=== PATIENT | male | born 1990 | race African-American/Black ===

== ENCOUNTER 2017-10-14 14:38 | Observation (INO) ==
[2017-10-14] MEDS ORDERED: 0.9 % SODIUM CHLORIDE 1,000 ML IV ONE ×2 (14:56→17:10)
[2017-10-14] MEDS ORDERED: INSULIN REGULAR, HUMAN 1 UNIT/0.01 ML UNIT IV ONE (15:04)
--- NOTE | 2017-10-14 15:11 | Emergency Department Note ---
General Adult HPI - General Chief complaint: Blood Sugar Problem Stated complaint: Excessive thirst, urination Time Seen by Provider: 10/14/17 14:47 Source: patient Mode of arrival: ambulatory Limitations: no limitations - Related Data Home Medications Medication Instructions Recorded Confirmed No Known Home Meds [No Known Home 10/14/17 10/14/17 Meds] Allergies Allergy/AdvReac Type Severity Reaction Status Date / Time lactose Allergy Mild Diarrhea Verified 10/14/17 19:02 Past Medical History - Social History smoking status: Never smoker Physical Exam Limitations: no limitations Course Vital Signs Temperature 98.1 F 10/14/17 14:41 Pulse Rate 83 10/14/17 14:41 Respiratory Rate 18 10/14/17 14:41 Blood Pressure 160/104 10/14/17 14:41 Pulse Oximetry (%) 99 10/14/17 14:41 Temperature 97.4 F 10/15/17 07:37 Pulse Rate 73 10/15/17 07:37 Respiratory Rate 16 10/15/17 07:37 Blood Pressure 157/79 10/15/17 07:37 Pulse Oximetry (%) 97 10/15/17 07:37 Medical Decision Making - MDM Narrative Medical decision making narrative: pt seen by nurse practioner Lexis and pt examined in conjunctrion with. agree with dx and rx of new onset diabetes and admission to Dr Lucero - Lab Data Result diagrams: 10/14/17 15:00 10/15/17 05:38 Lab Results 10/14/17 10/14/17 10/14/17 Range/Units 15:00 15:00 15:00 WBC 9.3 (4.5-11.0) K/mcL RBC 5.12 (4.50-5.90) M/mcL Hgb 15.4 (13.5-16.5) g/dL Hct 45.6 (41.0-55.0) % POC Hct 46.0 (41.0-55.0) % MCV 89.1 (80.0-100.0) fL MCH 30.1 (26.0-34.0) pg MCHC 33.8 (31.0-36.0) g/dL RDW 12.4 (11.5-14.5) % Plt Count 244 (140-440) K/mcL MPV 10.1 (7.4-10.4) fL Gran % 64.0 (38.0-78.0) % Lymph % (Auto) 26.7 (15.5-49.0) % [place] % (Auto) 6.9 (1.0-12.0) % Eos % (Auto) 2.1 (0.0-7.0) % Baso % (Auto) 0.3 (0.0-2.0) % Gran # 5.9 (1.8-8.0) K/mcL Lymph # (Auto) 2.5 (1.5-4.8) K/mcL [place] # (Auto) 0.6 (0.1-0.9) K/mcL Eos # (Auto) 0.2 (0.0-0.7) K/mcL Baso # (Auto) 0 (0.0-0.3) K/mcL VBG Lactic Acid 1.1 (0.5-2.2) mmol/L POC Sodium 130 L (133-145) mmol/L Sodium 128 L (133-145) mmol/L POC Potassium 4.2 (3.3-5.1) mmol/L Potassium 4.2 (3.3-5.1) mmol/L POC Chloride 93 L (96-108) mmol/L Chloride 88 L (96-108) mmol/L Carbon Dioxide 23 (22-30) mmol/L POC Total CO2 25 (22-30) mmol/L Anion Gap 17.0 H (8-16) POC BUN 15 (6-20) mg/dl BUN 14 (6-20) mg/dl Creatinine 1.0 (0.7-1.2) mg/dl POC Creatinine 0.8 (0.7-1.2) mg/dl GFR Calculation 104 Glucose 692 H* (70-105) mg/dL POC Glucose 647 H* (70-105) mg/dL Calcium 10.2 (8.6-10.4) mg/dl POC WB Ioniz Calcium 1.25 (1.16-1.32) mmol/L Total Bilirubin 0.6 (0.0-1.0) mg/dL AST 53 H (0-37) U/l ALT 97 H (0-40) U/l Alkaline Phosphatase 132 H (39-117) U/L Total Protein 7.7 (5.9-8.4) gm/dL Albumin 4.8 (3.2-5.2) gm/dL Globulin 2.9 (2.2-3.7) gm/dL Albumin/Globulin Ratio 1.7 (1.0-2.3) Disposition Pt seen by [employer]ICE MANAGER/PA only: No Clinical Impression: Acute hyperglycemia Disposition: Xfer As Inpt ([facility]) Condition: Fair
[2017-10-14] MEDS ORDERED: INSULIN LISPRO 1 UNIT/0.01 ML UNIT SQ ONE ×2 (15:14→15:37)
[2017-10-14 15:44] LABS: Basophils # (Auto) 0 K/mcL (0.0-0.3); Basophils % (Auto) 0.3 % (0.0-2.0); Eosinophils # (Auto) 0.2 K/mcL (0.0-0.7); Eosinophils % (Auto) 2.1 % (0.0-7.0); Lymphocytes # (Auto) 2.5 K/mcL (1.5-4.8); Lymphocytes % (Auto) 26.7 % (15.5-49.0); Mean Cell Volume 89.1 fL (80.0-100.0); Mean Corpuscular HGB Conc 33.8 g/dL (31.0-36.0); Mean Corpuscular Hemoglobin 30.1 pg (26.0-34.0); Monocytes # (Auto) 0.6 K/mcL (0.1-0.9); Monocytes % (Auto) 6.9 % (1.0-12.0); Platelet Count 244 K/mcL (140-440); RBC 5.12 M/mcL (4.50-5.90); Red Cell Distribution Width 12.4 % (11.5-14.5)
[2017-10-14 16:05] LABS: ALT/SGPT 97 U/l (0-40); Albumin 4.8 gm/dL (3.2-5.2); Albumin/Globulin Ratio 1.7 (1.0-2.3); Alkaline Phosphatase 132 U/L (39-117); Blood Urea Nitrogen 14 mg/dl (6-20)
[2017-10-14] MEDS ORDERED: 0.9 % SODIUM CHLORIDE 1,000 ML IV SCH ×2 (17:15→18:40)
--- NOTE | 2017-10-14 17:22 | Emergency Department Note ---
General Adult HPI - General Chief complaint: Blood Sugar Problem Stated complaint: Excessive thirst, urination Time Seen by Provider: 10/14/17 14:47 Source: patient Mode of arrival: ambulatory Limitations: no limitations - History of Present Illness HPI Narrative: 27-year-old male presents with what he believes could be high blood sugar. He has had a month long history of excessive thirst, weight loss of 30 pounds, frequent urination to the point where the last 2 nights he has been incontinent at night because he cannot make it to the bathroom he is voiding so much. He feels hot and dry. He has no history of diabetes and has never had anything like this in the past. Denies any family history of diabetes. No fever or chills. No nausea, vomiting, or diarrhea. He does have some general malaise. Denies any other health history Associated symptoms: Reports: malaise. Denies: chest pain, cough, diaphoresis, fever/chills, headaches, rash, shortness of breath, syncope - Related Data Home Medications Medication Instructions Recorded Confirmed No Known Home Meds [No Known Home 10/14/17 10/14/17 Meds] Allergies Allergy/AdvReac Type Severity Reaction Status Date / Time No Known Drug Allergies Allergy Unverified 10/14/17 14:43 Review of Systems All systems ED: reviewed and negative except as stated. Past Medical History - Past Medical History Medical history: Reports: no medical history Surgical history ED: Reports: no surgical history - Social History smoking status: Never smoker Alcohol use: Reports: None Drug use: Reports: none Physical Exam Limitations: no limitations General appearance: alert, in no apparent distress Head: atraumatic, normocephalic, normal inspection Eye: Present: normal appearance. Absent: conjunctival injection ENT: normal exam, normal oropharynx, mucous membranes moist, TM's normal bilaterally, normal external ear exam Neck: Present: normal inspection, trachea midline. Absent: tenderness, lymphadenopathy Chest: Present: normal inspection, symmetric chest wall rise Respiratory: Present: normal lung sounds bilaterally. Absent: respiratory distress, wheezes, accessory muscle use Cardiovascular: Present: regular rate, normal heart sounds Abdominal: Present: soft, normal bowel sounds. Absent: distention, tenderness, guarding Extremities: Present: normal inspection Neurological: Present: alert, oriented X3, normal gait Psychiatric: Present: normal affect, normal mood Skin: Present: warm, dry, intact, normal color. Absent: rash, cyanosis, diaphoresis, erythema Course Course Narrative: At 1730 I did discuss this patient with Dr. Lucero, the hospitalist who agrees to accept and admit the patient. He will need a considerable amount of education due to new onset diabetes. Vital Signs Temperature 98.1 F 10/14/17 14:41 Pulse Rate 83 10/14/17 14:41 Respiratory Rate 18 10/14/17 14:41 Blood Pressure 160/104 10/14/17 14:41 Pulse Oximetry (%) 99 10/14/17 14:41 Temperature 98.1 F 10/14/17 14:41 Pulse Rate 76 10/14/17 16:31 Respiratory Rate 18 10/14/17 14:41 Blood Pressure 153/89 10/14/17 16:31 Pulse Oximetry (%) 98 10/14/17 16:31 Medical Decision Making - Lab Data Lab results reviewed: Yes I reviewed the patient's lab results. Result diagrams: 10/14/17 15:00 10/14/17 15:00 Lab Results 10/14/17 10/14/17 10/14/17 Range/Units 15:00 15:00 15:00 WBC 9.3 (4.5-11.0) K/mcL RBC 5.12 (4.50-5.90) M/mcL Hgb 15.4 (13.5-16.5) g/dL Hct 45.6 (41.0-55.0) % POC Hct 46.0 (41.0-55.0) % MCV 89.1 (80.0-100.0) fL MCH 30.1 (26.0-34.0) pg MCHC 33.8 (31.0-36.0) g/dL RDW 12.4 (11.5-14.5) % Plt Count 244 (140-440) K/mcL MPV 10.1 (7.4-10.4) fL Gran % 64.0 (38.0-78.0) % Lymph % (Auto) 26.7 (15.5-49.0) % [place] % (Auto) 6.9 (1.0-12.0) % Eos % (Auto) 2.1 (0.0-7.0) % Baso % (Auto) 0.3 (0.0-2.0) % Gran # 5.9 (1.8-8.0) K/mcL Lymph # (Auto) 2.5 (1.5-4.8) K/mcL [place] # (Auto) 0.6 (0.1-0.9) K/mcL Eos # (Auto) 0.2 (0.0-0.7) K/mcL Baso # (Auto) 0 (0.0-0.3) K/mcL VBG Lactic Acid 1.1 (0.5-2.2) mmol/L POC Sodium 130 L (133-145) mmol/L Sodium 128 L (133-145) mmol/L POC Potassium 4.2 (3.3-5.1) mmol/L Potassium 4.2 (3.3-5.1) mmol/L POC Chloride 93 L (96-108) mmol/L Chloride 88 L (96-108) mmol/L Carbon Dioxide 23 (22-30) mmol/L POC Total CO2 25 (22-30) mmol/L Anion Gap 17.0 H (8-16) POC BUN 15 (6-20) mg/dl BUN 14 (6-20) mg/dl Creatinine 1.0 (0.7-1.2) mg/dl POC Creatinine 0.8 (0.7-1.2) mg/dl GFR Calculation 104 Glucose 692 H* (70-105) mg/dL POC Glucose 647 H* (70-105) mg/dL Calcium 10.2 (8.6-10.4) mg/dl POC WB Ioniz Calcium 1.25 (1.16-1.32) mmol/L Total Bilirubin 0.6 (0.0-1.0) mg/dL AST 53 H (0-37) U/l ALT 97 H (0-40) U/l Alkaline Phosphatase 132 H (39-117) U/L Total Protein 7.7 (5.9-8.4) gm/dL Albumin 4.8 (3.2-5.2) gm/dL Globulin 2.9 (2.2-3.7) gm/dL Albumin/Globulin Ratio 1.7 (1.0-2.3) Disposition Pt seen by GUNNER'S MATE G/PA only: Yes Clinical Impression: Acute hyperglycemia Disposition: Home, Self-Care Condition: Fair Time of Disposition: 17:30
--- NOTE | 2017-10-14 17:26 | Emergency Department Note ---
ED Note Addendum Note Addendum: he has been evaluated and laboratory tests reviewed with the nurse practitioner patient has new onset diabetes and agree with their admission to Dr. Lucero service for further treatment and education.
[2017-10-14] MEDS ORDERED: DEXTROSE 50% 50 ML VIAL IV PRN (18:40)
[2017-10-14] MEDS ORDERED: DEXTROSE 31 GM ORAL.SUSP PO PRN (18:40)
[2017-10-14] MEDS ORDERED: ONDANSETRON 4 MG/2 ML VIAL IV PRN (18:40)
[2017-10-14] MEDS ORDERED: ACETAMINOPHEN 325 MG TABLET PO PRN (18:40)
[2017-10-14] MEDS ORDERED: POTASSIUM CHLORIDE 20 MEQ PACKET PO PRN (18:40)
[2017-10-14] MEDS ORDERED: MAGNESIUM SULFATE 2 GM/50 ML BAG IV PRN (18:40)
--- NOTE | 2017-10-14 19:29 | Internal Med History&Physical ---
Medical - H&P: [facility] Patient information: Note initiated : 10/14/17 at 7:22 pm Service Date, if different from initiated Date: [] Patient: Delfino Rodriguez a 27 y/o M admitted on 10/14/17 for Excessive thirst, urination. 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 Symptoms associated with increasing urination, increased thirst and hunger. Initial workup in the ER was significant for blood sugars over 600 along with elevated blood pressure 150s. Patient received 14 units of regular insulin along with 2 L crystalloid bolus. Hospitalist service was consulted in light of new onset diabetes and need for furtherevaluation. Patient has not been aware of high blood sugars in the past. There is no significant family history. biochemical profile was unremarkable without signs of ketoacidosis. At the time of evaluation patient is accompanied with family. He denies lightheadedness dizziness. He endorses to leg cramps. His above symptoms have been progressing over the last 1 month.he denies high-risk sexual behavior or IV drug use. Denies excessive alcoholism. review of systems 10 point review of system was performed and is negative except for ones discussed above Medical - H&P: PMH Medical history: nonsignificant Pertinent family history: no history of diabetes Social history: nonsmoker No history of alcoholism No IV drug use works as security personnel Functional capacity: independent ambulation Medical - H&P: Meds Home Medications Medication Instructions Recorded Confirmed Type No Known Home Meds [No Known Home 10/14/17 10/14/17 History Meds] Allergies Allergy/AdvReac Type Severity Reaction Status Date / Time lactose Allergy Mild Diarrhea Verified 10/14/17 19:02 Medical - H&P: Exam - Constitutional Vitals: Temp Pulse Resp BP Pulse Ox 98.1 F 84 18 148/83 98 10/14/17 14:41 10/14/17 18:01 10/14/17 14:41 10/14/17 18:01 10/14/17 18:01 Exam: Oral cavity dry No eardischarge nonlabored breathing No lymphedema Nondistended abdomen Alert oriented no anxiety Moving all 4 extremities IV movements symmetric Skin no suspicious lesion Medical - H&P: Reslt - Labs CBC & Chem 7: 10/14/17 15:00 10/14/17 15:00 Labs: Short CBC 10/14/17 Range/Units 15:00 WBC 9.3 (4.5-11.0) K/mcL Hgb 15.4 (13.5-16.5) g/dL Hct 45.6 (41.0-55.0) % Plt Count 244 (140-440) K/mcL BMP 10/14/17 15:00 Sodium 128 L Potassium 4.2 Chloride 88 L Carbon Dioxide 23 BUN 14 Creatinine 1.0 Glucose 692 H* Calcium 10.2 Liver Function 10/14/17 Range/Units 15:00 Total Bilirubin 0.6 (0.0-1.0) mg/dL AST 53 H (0-37) U/l ALT 97 H (0-40) U/l Alkaline Phosphatase 132 H (39-117) U/L Albumin 4.8 (3.2-5.2) gm/dL Medical - H&P: A/P (1) Diabetes mellitus, new onset Current visit: Yes Status: Acute * new onset diabetes- start insulinsliding scale. Send anti-VIOLA, C-peptide, insulin levels. Start metformin/glipizide. diabetic education/diabetic diet * Hypertension-continue monitoring. If persistent elevation consider WILLIE inhibitor * Full code plan * observation admission * New-onset diabetes evaluation as above * Metformin and glipizide/sliding-scale * scheduled outpatient primary care physician follow-up on discharge Medical - H&P: Qual - Stroke Symptom Onset Unknown: No - VTE Deep Vein Thrombosis/Pulmonary Embolism Present on Admission: No
[2017-10-14] MEDS: HEPARIN 5,000 UNIT/ML VIAL SQ SCH (20:51)
[2017-10-14] MEDS: 0.9 % SODIUM CHLORIDE 1,000 ML IV SCH (20:52)
[2017-10-14] MEDS: DOCUSATE SODIUM 100 MG CAPSULE PO SCH (21:09)
[2017-10-14] MEDS: INSULIN LISPRO 1 UNIT/0.01 ML UNIT SQ SCH (21:10)
[2017-10-14] MEDS: 0.9 % SODIUM CHLORIDE 10 ML SYRINGE IV SCH (21:11)
[2017-10-14] MEDS: NEUTRA PHOS 1 PACKET PO SCH ×2 (21:11→23:54)
[2017-10-14] MEDS: CYANOCOBALAMIN (VITAMIN B-12) 500 MCG TABLET PO SCH ×2 (21:11→23:54)
[2017-10-14] MEDS: SENNOSIDES/DOCUSATE SODIUM 1 TAB TABLET PO SCH (21:11)
[2017-10-15] MEDS: 0.9 % SODIUM CHLORIDE 1,000 ML IV SCH ×3 (05:19→16:53)
[2017-10-15] MEDS: 0.9 % SODIUM CHLORIDE 10 ML SYRINGE IV SCH ×3 (05:19→20:28)
[2017-10-15 07:21] LABS: ALT/SGPT 78 U/l (0-40); Albumin 3.8 gm/dL (3.2-5.2); Albumin/Globulin Ratio 1.6 (1.0-2.3); Alkaline Phosphatase 99 U/L (39-117); Bilirubin,Direct < 0.2 mg/dL (0.0-0.3); Blood Urea Nitrogen 9 mg/dl (6-20); Gamma Glutamyl Transpeptidase 124 U/L (8-61); Uric Acid 4.9 mg/dL (2.5-8.0)
[2017-10-15] MEDS ORDERED: glipiZIDE 5 MG TAB.XL.24H PO SCH (07:30)
[2017-10-15] MEDS: INSULIN LISPRO 1 UNIT/0.01 ML UNIT SQ SCH ×4 (07:59→20:28)
[2017-10-15] MEDS ORDERED: metFORMIN 500 MG TABLET PO SCH (08:00)
[2017-10-15] MEDS: CYANOCOBALAMIN (VITAMIN B-12) 500 MCG TABLET PO SCH ×2 (09:57→20:28)
[2017-10-15] MEDS: FOLIC ACID 1 MG TABLET PO SCH (09:58)
[2017-10-15] MEDS: MULTIVIT,THER IRON,CA,FA & MIN 1 TABLET PO SCH (09:58)
[2017-10-15] MEDS: DOCUSATE SODIUM 100 MG CAPSULE PO SCH ×2 (09:58→20:28)
[2017-10-15] MEDS: NEUTRA PHOS 1 PACKET PO SCH (09:58)
[2017-10-15] MEDS: INSULIN GLARGINE, HUMAN 1 UNIT/0.01 ML SQ SCH (11:58)
[2017-10-15] MEDS: HEPARIN 5,000 UNIT/ML VIAL SQ SCH ×2 (11:58→20:28)
[2017-10-15] MEDS ORDERED: LISINOPRIL 5 MG TABLET PO ONE (14:24)
--- NOTE | 2017-10-15 15:54 | Internal Med Progress Note ---
Medical - PN: Subj Patient information: Note initiated : 10/15/17 at 3:53 pm Service Date, if different from initiated Date: [] Patient: Delfino Rodriguez a 27 y/o M admitted on 10/14/17 for Excessive Thirst, Urination/Hyperglycemia. 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 Symptoms associated with increasing urination, increased thirst and hunger. Initial workup in the ER was significant for blood sugars over 600 along with elevated blood pressure 150s. Patient received 14 units of regular insulin along with 2 L crystalloid bolus. Hospitalist service was consulted in light of new onset diabetes and need for furtherevaluation. Patient has not been aware of high blood sugars in the past. There is no significant family history. biochemical profile was unremarkable without signs of ketoacidosis. At the time of evaluation patient is accompanied with family. He denies lightheadedness dizziness. He endorses to leg cramps. His above symptoms have been progressing over the last 1 month.he denies high-risk sexual behavior or IV drug use. Denies excessive alcoholism. 10/15-improving blood sugars. Diabetic education ongoing. On basal prandial insulin. Insulin levels some normal indicating likely type 1 diabetes however C-peptide and anti-viola antibody pending. started lisinopril due to underlying hypertension. patient will need close monitoring of blood sugars and outpatient titration of insulin for better diabetes control and primary care physician follow-up. Counseling performed. Possible discharge in 24 hours. Blood sugars downtrending. - Constitutional Vitals: Vital Signs Temp Pulse Resp BP Pulse Ox 97.4 F 80 16 148/92 97 10/15/17 12:00 10/15/17 12:00 10/15/17 12:00 10/15/17 12:00 10/15/17 12:00 Period Temp Pulse Resp BP Sys/Chapman Pulse Ox Last 24 Hr 97.4 F-97.7 F 69-85 16-16 137-157/70-100 97-99 Intake and Output 10/15/17 10/15/17 10/15/17 05:59 13:59 21:59 Intake Total 890 / 890 1000 / 1000 Output Total 2200 / 2200 700 / 700 Balance -1310 / -1310 300 / 300 Weight 263 lb Patient Weight 10/16/17 05:59 Weight 263 lb Intake & Output: Intake & Output 10/15/17 10/15/17 10/15/17 05:59 13:59 21:59 Intake Total 890 / 890 1000 / 1000 Output Total 2200 / 2200 700 / 700 Balance -1310 / -1310 300 / 300 Weight 263 lb Intake: IV 1000 / 1000 Sodium Chloride 0.9% 1,000 ml @ 1000 / 1000 100 mls/hr IV .Q10H [facility] Rx#: [id number] Oral 890 / 890 Output: Void Amount 2200 / 2200 700 / 700 Other: Meal Dinner Percent of Meal Consumed 100% Feeding Ability Independent General appearance: no acute distress Exam: alert oriented large body habitus Nonlabored breathing No lymphedema no anxiety Medical - PN: Obj Da - Labs CBC & Chem 7: 10/14/17 15:00 10/16/17 06:04 Labs: Abnormal Lab Results 10/15/17 10/14/17 10/14/17 05:38 23:45 15:00 POC Sodium 130 L Sodium 128 L POC Chloride 93 L Chloride 88 L Carbon Dioxide 21 L Anion Gap 17.0 H Glucose 314 H 692 H* POC Glucose 647 H* Insulin Level 1.6 L GGT 124 H AST 46 H 53 H ALT 78 H 97 H Alkaline Phosphatase 132 H Triglycerides 289 H Meds: Medications Acetaminophen (Tylenol) 650 mg PO Q4-6HP PRN PRN Reason: PAIN/FEVER > 101 Cyanocobalamin (Vitamin B-12) 1,000 mcg PO BID [facility] Stop: 10/19/17 09:01 Last Admin: 10/15/17 09:57 Dose: 1,000 mcg Dextrose (Dextrose 50%) 0 ml IV UD PRN PRN Reason: Hypoglycemia Diagnostic Test (Pha) (Accu-Chek) 1 each FS ACHS [facility] Last Admin: 10/15/17 11:59 Dose: 1 each Docusate Sodium (Colace) 100 mg PO BID [facility] Last Admin: 10/15/17 09:58 Dose: 100 mg Folic Acid (Folic Acid) 1 mg PO DAILY [facility] Last Admin: 10/15/17 09:58 Dose: 1 mg Glucose (Insta-Glucose) 15 gm PO PRN PRN PRN Reason: Hypoglycemia Heparin Sodium (Porcine) (Heparin) 5,000 unit SQ Q12 [facility] Last Admin: 10/15/17 11:58 Dose: 5,000 unit Magnesium Sulfate (Magnesium Sulfate) 2 gm in 50 mls @ 50 mls/hr IV UD PRN PRN Reason: MG = or < 1.7 Sodium Chloride (Sodium Chloride 0.9%) 1,000 mls @ 100 mls/hr IV .Q10H [facility] Last Admin: 10/15/17 07:32 Dose: 100 mls/hr Sodium Chloride (Sodium Chloride 0.9%) 1,000 mls @ 0 mls/hr IV BOLUS SERVANDO PRN Reason: Wide Open Last Infusion: 10/14/17 20:32 Dose: Infused Insulin Glargine (Lantus) 10 unit SQ DAILY [facility] Last Admin: 10/15/17 11:58 Dose: 10 unit Insulin Human Lispro (Humalog) 0 unit SQ ACHS SERVANDO PRN Reason: Protocol Last Admin: 10/15/17 12:09 Dose: 4 unit Iron Carb/Multivit/Medical Practitioners/Folic Acid (Multivitamin W/Minerals) 1 tab PO DAILY [facility] Last Admin: 10/15/17 09:58 Dose: 1 tab Lisinopril (Zestril) 5 mg PO DAILY [facility] Ondansetron HCl (Zofran) 4 mg IV Q4-6HP PRN PRN Reason: Nausea And Vomiting Potassium Chloride (Klor-Con) 40 meq PO DAILYP PRN PRN Reason: K+ < 3.5 Senna/Docusate Sodium (Senna Plus Tablet) 1 tab PO HS [facility] Last Admin: 10/14/17 21:11 Dose: Not Given Sodium Chloride (Saline Flush) 10 ml IV Q8 [facility] Last Admin: 10/15/17 14:56 Dose: Not Given Medical - PN: A/P - Time Spent With Patient Total time spent is greater than 50% in coordination of care (as documented) at patient's floor/unit and/or counseling patient: 15 - 24 minutes (1) Diabetes mellitus, new onset Status: Acute Assessment and plan: * new onset diabetes- continue basal insulin/insulin sliding scale. increase basal insulin to 15 daily@ 0.12 0.15 units per KG body weight. await anti-VIOLA, C -peptide, low insulin levels indicating islet cell insufficiency. continue diabetic education * New diagnosis of Hypertension-start WILLIE inhibitor. Systolics around 150. * Full code plan * start WILLIE inhibitor * diabetic education * uptitrate basal insulin * DC with outpatient follow-up with PCP in 24 hours Current Visit: Yes Medical - PN: Qual - Stroke Symptom Onset Unknown: No - VTE Deep Vein Thrombosis/Pulmonary Embolism Present on Admission: No
[2017-10-15] MEDS: SENNOSIDES/DOCUSATE SODIUM 1 TAB TABLET PO SCH (20:28)
[2017-10-16] MEDS: 0.9 % SODIUM CHLORIDE 1,000 ML IV SCH ×3 (01:58→10:00)
[2017-10-16] MEDS: 0.9 % SODIUM CHLORIDE 10 ML SYRINGE IV SCH ×2 (05:16→19:57)
[2017-10-16 07:27] LABS: ALT/SGPT 71 U/l (0-40); Albumin/Globulin Ratio 1.7 (1.0-2.3); Alkaline Phosphatase 94 U/L (39-117); Bilirubin,Direct < 0.2 mg/dL (0.0-0.3); Blood Urea Nitrogen 10 mg/dl (6-20); Gamma Glutamyl Transpeptidase 126 U/L (8-61); Uric Acid 5.4 mg/dL (2.5-8.0)
[2017-10-16] MEDS: INSULIN LISPRO 1 UNIT/0.01 ML UNIT SQ SCH ×2 (07:48→12:07)
[2017-10-16] MEDS: INSULIN GLARGINE, HUMAN 1 UNIT/0.01 ML SQ SCH ×3 (08:22→13:37)
[2017-10-16] MEDS: HEPARIN 5,000 UNIT/ML VIAL SQ SCH (08:27)
[2017-10-16] MEDS: FOLIC ACID 1 MG TABLET PO SCH (08:28)
[2017-10-16] MEDS: CYANOCOBALAMIN (VITAMIN B-12) 500 MCG TABLET PO SCH (08:28)
[2017-10-16] MEDS: MULTIVIT,THER IRON,CA,FA & MIN 1 TABLET PO SCH (08:28)
[2017-10-16] MEDS: DOCUSATE SODIUM 100 MG CAPSULE PO SCH (08:29)
[2017-10-16] MEDS ORDERED: LISINOPRIL 5 MG TABLET PO SCH (09:00)
--- NOTE | 2017-10-16 11:46 | Discharge Summary ---
Medical - DS: Prov Patient information: Note initiated : 10/16/17 at 11:43 am Service Date, if different from initiated Date: [] Patient: Delfino Rodriguez 27 y/o M admitted on 10/14/17 for Excessive Thirst, Urination/Hyperglycemia. Chief Complaint: [] Date of admission: 10/14/17 18:30 Discharge date: 10/16/17 Consults: 10/14/17 17:18 Consult to Physician [CONS] Stat Comment: Consulting Provider: Vincent Cook Reason For Exam: Physician to Consult Medical - DS: Meds - Discharge Medications Prescriptions: Insulin Glargine, Human [Lantus] 15 unit SQ DAILY #30 unit Insulin Lispro [Humalog] 1 unit SQ ACHS #30 unit Lisinopril [Zestril] 5 mg PO DAILY #30 tab Active and Home Medications: Home Medications Insulin Glargine, Human [Lantus] 15 unit SQ DAILY #30 unit 10/16/17 [Rx Last Taken Unknown] Insulin Lispro [Humalog] 1 unit SQ ACHS #30 unit 10/16/17 [Rx Last Taken Unknown ] Lisinopril [Zestril] 5 mg PO DAILY #30 tab 10/16/17 [Rx Last Taken Unknown] Medical - DS: Hosp Hospital course: DISCHARGE DIAGNOSIS * Dew onset diabetes likely type I- continue basal insulin/insulin sliding scale. @ 0.1- 0.15 units per KG body weight. await anti-VIOLA, C-peptide, low insulin levels indicating islet cell insufficiency. continue diabetic education * New diagnosis of Hypertension-continue WILLIE inhibitor. Systolics around 140s. 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 Symptoms associated with increasing urination, increased thirst and hunger. Initial workup in the ER was significant for blood sugars over 600 along with elevated blood pressure 150s. Patient received 14 units of regular insulin along with 2 L crystalloid bolus. Hospitalist service was consulted in light of new onset diabetes and need for furtherevaluation. Patient has not been aware of high blood sugars in the past. There is no significant family history. biochemical profile was unremarkable without signs of ketoacidosis. At the time of evaluation patient is accompanied with family. He denies lightheadedness dizziness. He endorses to leg cramps. His above symptoms have been progressing over the last 1 month.he denies high-risk sexual behavior or IV drug use. Denies excessive alcoholism. 10/15-improving blood sugars. Diabetic education ongoing. On basal prandial insulin. Insulin levels some normal indicating likely type 1 diabetes however C-peptide and anti-viola antibody pending. started lisinopril due to underlying hypertension. patient will need close monitoring of blood sugars and outpatient titration of insulin for better diabetes control and primary care physician follow-up. Counseling performed. Possible discharge in 24 hours. Blood sugars downtrending. 10/16-patient doing well. No overnight events. Blood sugars improved to mid 200. continue up titration of basal prandial insulin. Follow outpatient PCP continue WILLIE inhibitor/diabetic education and consistent carbohydrate diet. Discharge with instructions as below Discharge diagnosis: . - Time Spent with Patient Total time spent providing and/or coordinating discharge services: Greater than 30 minutes Medical - DS: Exam - Constitutional Vitals: Vital Signs Temp Pulse Resp BP Pulse Ox 10/16/17 07:51 97.3 F 74 14 147/86 98 10/16/17 03:07 98.4 F 79 22 142/83 98 10/16/17 00:00 97.6 F 75 22 136/72 98 10/15/17 20:00 97.7 F 77 24 H 155/72 97 10/15/17 16:00 97.5 F 75 16 145/82 96 10/15/17 12:00 97.4 F 80 16 148/92 97 Intake and Output 10/15/17 10/16/17 10/16/17 21:59 05:59 13:59 Intake Total 2815 / 2815 1400 / 1400 1040 / 1040 Output Total 4025 / 4025 700 / 700 700 / 700 Balance -1210 / -1210 700 / 700 340 / 340 Intake: IV 935 / 935 1000 / 1000 Sodium Chloride 0.9% 1,000 ml @ 935 / 935 1000 / 1000 100 mls/hr IV .Q10H SERVANDO Rx#: [id number] Oral 1880 / 1880 400 / 400 1040 / 1040 Output: Void Amount 4025 / 4025 700 / 700 700 / 700 Other: Meal Dinner cheese stick Breakfast Percent of Meal Consumed 100% 100% 100% Feeding Ability Independent Independent # Bowel Movements 1 Weight 266 lb Medical - DS: Data Labs on day of discharge: Labs from last 24 hours 10/16/17 10/14/17 10/14/17 06:04 23:45 15:00 Sodium 136 Potassium 4.4 Chloride 101 Carbon Dioxide 21 L Anion Gap 14.0 BUN 10 Creatinine 0.7 GFR Calculation 131 Glucose 268 H Insulin Level Cancelled C-Peptide Cancelled Uric Acid 5.4 Calcium 9.2 Phosphorus 3.0 Magnesium 1.7 Total Bilirubin 0.6 Direct Bilirubin < 0.2 GGT 126 H AST 32 ALT 71 H Alkaline Phosphatase 94 Lactate Dehydrogenase 123 Total Protein 6.4 Albumin 4.0 Globulin 2.4 Albumin/Globulin Ratio 1.7 Triglycerides 273 H VIOLA Antibody Pending 10/14/17 15:00 Sodium Potassium Chloride Carbon Dioxide Anion Gap BUN Creatinine GFR Calculation Glucose Insulin Level C-Peptide Uric Acid Calcium Phosphorus Magnesium Total Bilirubin Direct Bilirubin GGT AST ALT Alkaline Phosphatase Lactate Dehydrogenase Total Protein Albumin Globulin Albumin/Globulin Ratio Triglycerides VIOLA Antibody Cancelled Medical - DS: A/P - Patient/Caregiver Discharge Instructions Activity: increase activity as tolerated Diet: Consistent Carbohydrate Additional Instructions: Follow-up PCP in 5 days-reschedule appointment prior to discharge Lantus titration based on morning sugars Sliding scale insulin Diabetic education continue consistent carbohydrate diet Prescriptions: Insulin Glargine, Human [Lantus] 15 unit SQ DAILY #30 unit Insulin Lispro [Humalog] 1 unit SQ ACHS #30 unit Lisinopril [Zestril] 5 mg PO DAILY #30 tab - Problem Maintenance (1) Diabetes mellitus, new onset Status: Acute - Follow up Plan Disposition: Home, Self-Care Prognosis: Fair Rehab Potential: Fair I certify that the patient requires SNF services: No Overall status at discharge: patient is progressing back to baseline Medical - DS: Qual - VTE Deep Vein Thrombosis/Pulmonary Embolism Present on Admission: No
== END 2017-10-16 14:10 | disposition home or self-care (01) ==
LOC: ED 14:38 → INTOOBSV 18:30 → MEDSUR 18:30
PROVIDERS: ADMIT Internal Medicine; ATTEND Internal Medicine